=== PATIENT | male | born 1980 | race Caucasian/White ===

== ENCOUNTER 2021-10-03 18:10 | Inpatient (IN) | payer OTHER ==
[~2021-10-03] VITALS: Ht 177.8 cm; Wt 92.2 kg
[2021-10-03] MEDS ORDERED: CloNIDine HCL 0.2 MG TABLET PO ONE (20:15)
[2021-10-03 20:54] LABS: BASOPHILS % (AUTO) 0.4 % (0.0-2.0); EOSINOPHILS % (AUTO) 0.1 % (1.0-6.0); HEMATOCRIT 46.7 % (41-53); HEMOGLOBIN 15.8 g/dL (13.5-17.5); LYMPHOCYTES # (AUTO) 1.6 K/uL (1.0-4.8); LYMPHOCYTES % (AUTO) 16.3 % (22.0-44.0); MEAN CORPUSCULAR HEMOGLOBIN 29.7 pg (26.0-34.0); MEAN CORPUSCULAR HGB CONC 33.9 G/dL (31.0-37.0); MEAN CORPUSCULAR VOLUME 88 fL (80-100); MONOCYTES # (AUTO) 0.4 K/uL (0.1-1.0); MONOCYTES % (AUTO) 4.1 % (2.0-9.0); NEUTROPHILS # (AUTO) 7.7 K/uL (1.8-7.7); NEUTROPHILS % (AUTO) 79.1 % (40.0-70.0); PLATELET COUNT (AUTO) 288 K/uL (150-450); RED BLOOD CELL COUNT(AUTO) 5.33 MIL/uL (4.50-5.90); RED CELL DISTRIBUTION WIDTH 13.4 % (11.5-14.5)
[2021-10-03 21:04] LABS: ANION GAP 11 mmol/L (8-16); CALCIUM, TOTAL 9.1 mg/dL (8.8-10.5); CARBON DIOXIDE 27 mmol/L (22-29); CHLORIDE 101 mmol/L (98-107); CREATININE 1.14 mg/dL (0.60-1.30); GLOMERULAR FILTR. RATE CALC > 60 mL/min (>60); GLUCOSE,RANDOM 112 mg/dL (70-110); POTASSIUM 4.2 mmol/L (3.5-5.1); SODIUM SERUM 139 mmol/L (136-145); UREA NITROGEN, BLOOD 9 mg/dL (7-18)
[2021-10-03] MEDS ORDERED: ACETAMINOPHEN 325 MG TABLET PO PRN ×2 (21:45)
[2021-10-03] MEDS ORDERED: ONDANSETRON HCL 4 MG/2 ML VIAL IVP PRN ×2 (21:45)
[2021-10-03] MEDS ORDERED: ASPIRIN 81 MG CHEWABLE TABLET PO ONE (21:45)
[2021-10-03] MEDS ORDERED: LABETALOL HCL 100 MG TABLET PO SCH (22:00)
[2021-10-03 22:15] LABS: COVID AG,FIA SOURCE NASOPHARYNGEAL
[2021-10-03] MEDS: HEPARIN SODIUM,PORCINE 5,000 UNITS/ML VIAL SQ SCH (23:13)
[2021-10-03 23:30] VITALS: BP 130/88
[2021-10-04 04:42] VITALS: BP 99/66
[2021-10-04 07:55] VITALS: BP 132/91
[2021-10-04] MEDS ORDERED: LABETALOL HCL 100 MG TABLET PO SCH (09:00)
[2021-10-04] MEDS: HEPARIN SODIUM,PORCINE 5,000 UNITS/ML VIAL SQ SCH (10:18)
[2021-10-04 11:39] VITALS: BP 131/87
[2021-10-04] MEDS ORDERED: LABE100T51 PO (13:35)
[2021-10-04] MEDS ORDERED: ACET-2247 PO (13:38)
== END 2021-10-04 13:50 | DRG 305 ==
LOC: EMS 18:17 → 5S 22:21
PROVIDERS: ADMIT Internal Medicine; ATTEND Internal Medicine
DX: I16.0 Hypertensive urgency (principal); I10 Essential (primary) hypertension; F45.9 Somatoform disorder, unspecified; Z20.822 Contact with and (suspected) exposure to COVID-19; F15.10 Other stimulant abuse, uncomplicated; Z87.891 Personal history of nicotine dependence
CPT/HCPCS: 71045; 80048; 84484; 85025; 93005; 99285; J1644; 36415-L1; 36415-TC

== ENCOUNTER 2021-10-05 03:56 | Inpatient (IN) | payer OTHER ==
[~2021-10-05] VITALS: Ht 177.8 cm; Wt 90.0 kg
[~2021-10-05 03:56] MED LIST: ACET-2247 PO; LABE100T51 PO
[2021-10-05] MEDS ORDERED: AmLODIPine BESYLATE 5 MG TABLET PO ONE (05:00)
[2021-10-05] MEDS ORDERED: CloNIDine HCL 0.1 MG TABLET PO ONE (05:00)
[2021-10-05 05:34] LABS: BASOPHILS % (AUTO) 0.5 % (0.0-2.0); EOSINOPHILS % (AUTO) 0.4 % (1.0-6.0); HEMOGLOBIN 15.2 g/dL (13.5-17.5); LYMPHOCYTES # (AUTO) 1.9 K/uL (1.0-4.8); MEAN CORPUSCULAR HEMOGLOBIN 29.9 pg (26.0-34.0); MEAN CORPUSCULAR HGB CONC 34.4 G/dL (31.0-37.0); MEAN CORPUSCULAR VOLUME 87 fL (80-100); MONOCYTES # (AUTO) 0.5 K/uL (0.1-1.0); NEUTROPHILS # (AUTO) 5.8 K/uL (1.8-7.7); NEUTROPHILS % (AUTO) 70.1 % (40.0-70.0); PLATELET COUNT (AUTO) 274 K/uL (150-450); RED BLOOD CELL COUNT(AUTO) 5.06 MIL/uL (4.50-5.90); RED CELL DISTRIBUTION WIDTH 13.3 % (11.5-14.5)
[2021-10-05 05:48] LABS: ANION GAP 6 mmol/L (8-16); CALCIUM, TOTAL 9.2 mg/dL (8.8-10.5); CARBON DIOXIDE 29 mmol/L (22-29); CHLORIDE 102 mmol/L (98-107); CREATININE 1.16 mg/dL (0.60-1.30); GLOMERULAR FILTR. RATE CALC > 60 mL/min (>60); GLUCOSE,RANDOM 115 mg/dL (70-110); POTASSIUM 4.2 mmol/L (3.5-5.1); SODIUM SERUM 137 mmol/L (136-145); UREA NITROGEN, BLOOD 13 mg/dL (7-18)
[2021-10-05 05:55] LABS: ALANINE AMINOTRANSFERASE 26 U/L (12-78); ALBUMIN 3.8 g/dL (3.4-5.0); ALKALINE PHOSPHATASE 93 U/L (46-116); ASPARTATE AMINOTRANSFERASE 17 U/L (15-37); BILIRUBIN,TOTAL 1.1 mg/dL (0.1-1.0); TOTAL PROTEIN, SERUM 7.4 g/dL (6.4-8.2)
[2021-10-05] MEDS ORDERED: ZOLPIDEM TARTRATE 5 MG TABLET PO PRN (07:45)
[2021-10-05] MEDS ORDERED: MAGNESIUM HYDROXIDE SUSPENSION 30 ML UDCUP PO PRN (07:45)
[2021-10-05] MEDS ORDERED: ACETAMINOPHEN 325 MG TABLET PO PRN (07:45)
[2021-10-05] MEDS: FAMOTIDINE 20 MG TABLET PO SCH (09:13)
[2021-10-05] MEDS: LOSARTAN POTASSIUM 25 MG TABLET PO SCH ×2 (09:13→21:35)
[2021-10-05 09:42] LABS: COVID AG,FIA SOURCE NASAL SWAB
[2021-10-05 21:34] VITALS: BP 141/94
[2021-10-06 00:32] VITALS: BP 141/89
[2021-10-06 04:27] VITALS: BP 110/79
[2021-10-06] MEDS: AmLODIPine BESYLATE 10 MG TABLET PO SCH ×2 (06:04→08:31)
[2021-10-06 07:49] VITALS: BP 129/90
[2021-10-06] MEDS: LOSARTAN POTASSIUM 25 MG TABLET PO SCH ×2 (08:31→20:26)
[2021-10-06] MEDS: FAMOTIDINE 20 MG TABLET PO SCH (09:20)
[2021-10-06 12:11] VITALS: BP 142/80
[2021-10-06 15:28] VITALS: BP 120/84
[2021-10-06 20:21] VITALS: BP 155/81
[2021-10-07 00:19] VITALS: BP 135/85
[2021-10-07 05:30] VITALS: BP 110/58
[2021-10-07 07:41] VITALS: BP 108/73
[2021-10-07] MEDS: FAMOTIDINE 20 MG TABLET PO SCH (08:19)
[2021-10-07] MEDS: AmLODIPine BESYLATE 10 MG TABLET PO SCH (08:19)
[2021-10-07] MEDS ORDERED: LOSA-381 PO (08:51)
[2021-10-07] MEDS ORDERED: AMLO-258 PO (08:51)
[2021-10-07] MEDS ORDERED: FAMO20 PO (08:51)
[2021-10-07] MEDS ORDERED: LOSARTAN POTASSIUM 25 MG TABLET PO SCH (09:00)
[2021-10-07 11:36] VITALS: BP 135/70
== END 2021-10-07 15:40 | DRG 305 ==
LOC: EMS 03:59 → 5S 21:14
PROVIDERS: ADMIT Internal Medicine; ATTEND Internal Medicine
DX: I10 Essential (primary) hypertension (principal); F15.90 Other stimulant use, unspecified, uncomplicated; Z20.822 Contact with and (suspected) exposure to COVID-19; Z87.891 Personal history of nicotine dependence
CPT/HCPCS: 80053; 84484; 85025; 93005; 99285